=== PATIENT | male | born 1995 | race Caucasian/White ===

== ENCOUNTER 2016-12-18 17:49 | Emergency (ER) | payer OTHER ==
--- NOTE | 2016-12-18 19:43 | ED CLINICAL REPORT ---
Clinical Report - Physicians/Mid Levels [facility] [address] [place] [address] 12/18/2016 17:48 Patient: MARK BILLINGS Time Seen: 18:00; initial patient contact. Arrived- By ambulance. Historian- patient and EMS personnel. HISTORY OF PRESENT ILLNESS Chief Complaint: FALL. The injury occurred just prior to arrival. Occurred at work. Fell 4-5 feet while standing; slipped. The patient complains of moderate pain. No blow to the head, neck pain or loss of consciousness. REVIEW OF SYSTEMS The patient complains of pain on weight bearing. No numbness, dizziness, weakness or nausea. No abdominal pain or pain, laceration, vomiting or nausea. No vomiting, back pain, neck pain, laceration or alteration in mental status. No headache or head injury. The patient has had joint pain. All systems otherwise negative, except as recorded above. PAST HISTORY HLD Fatty liver. Surgeries: No history of previous surgery. Additional Surgeries: no known surgeries. Medications: Chantix. Crestor Oral. Allergies: No Known Drug Allergy. SOCIAL HISTORY Former smoker. Occasional alcohol use. No drug use. ADDITIONAL NOTES The nursing notes have been reviewed. PHYSICAL EXAM Vital Signs: 12/18/2016 18:13 BP: 142/71. HR: 90. RR: 16. O2 saturation: 98%. Pain level now: 7/10. Have been reviewed. Hypertensive. Heart rate normal. Respiratory rate normal. Temperature normal. Oxygen saturation normal. Appearance: Alert. Oriented X3. No acute distress. Eyes: Pupils equal, round and reactive to light. ENT: No dental injury. Neck: Painless ROM. Non-tender. CVS: Heart sounds normal. Pulses: left dorsalis pedis 2+ and left posterior tibial 2+. Respiratory: No respiratory distress. Breath sounds normal. Chest nontender. Abdomen: No visible injury. Back: No tenderness. ROM normal. Skin: Skin intact. Skin warm and dry. Extremities: Left ankle. (Obvious fracture dislocation. Foot is externally rotated at 90 deg.). Left foot. Neurovascular intact distally. Neuro: Oriented X 3. No motor deficit. No sensory deficit. LABS, X-RAYS, AND EKG Lt Wrist X-ray: Minimally displaced, angulated fracture of the distal radius. Views: AP, lateral and oblique. Technique: good. The X-rays were independently viewed by me and interpreted contemporaneously by me. Prior films were not available for comparison. Lt Tib/Fib X-ray: Oblique fracture of the mid left fibula. Views: AP and lateral. Technique: good. The X-rays were independently viewed by me and interpreted contemporaneously by me. Prior films were not available for comparison. Lt Ankle X-ray: Left ankle fracture. Severely displaced fracture of the distal tibia. Views: 3 view ankle series. Technique: good. The X-rays were independently viewed by me and interpreted contemporaneously by me. Prior films were not available for comparison. Laboratory Tests: CBC w Diff: (VERNON: 12/18/2016 17:55) ( [facility] 12/18/2016 18:11) Final results Test Result Flag Units (Reference) WHITE BLOOD COUNT 8.9 K/uL (4.5-11.5) RED BLOOD COUNT 5.00 M/uL (4.50-5.90) HEMOGLOBIN 14.9 gm/dL (13.5-17.5) HEMATOCRIT 43.5 % (41.0-53.0) MEAN CELL VOLUME 87 fL (80-100) MEAN CORPUSCULAR HGB 30 pg (26-34) MEAN CORPUSCULAR HGB CONC 34 g/dL (31-37) RED CELL DISTRIBUTION WIDTH 12.5 % (11.6-14.8) PLATELET COUNT 231 K/uL (150-400) NEUTROPHIL % 64.3 % (50-75) LYMPH % 24.1 L % (25-40) MONO % 7.8 % (3-14) EOSINOPHIL % 3.5 % (0-4) BASOPHIL % 0.3 % (0-2) CMP: (VERNON: 12/18/2016 17:55) ( [facility] 12/18/2016 18:21) Final results Test Result Flag Units (Reference) GLUCOSE 74 mg/dL (70-110) BUN 16 mg/dL (7-18) CREATININE 1.0 mg/dL (0.6-1.3) Estimated GFR >60 mL/min Estimated GFR- >60 mL/min Note: Persistent reduction over 3 months in eGFR<60 mL/min/1.73 m2 defines CKD. Patients with eGFR values>=60 mL/min/1.73 m2 may also have CKD if evidence ofpersistent proteinuria. Additional information may be foundat www.kidney.org. SODIUM 143 mmol/L (136-145) POTASSIUM 3.8 mmol/L (3.5-5.1) CHLORIDE 104 mmol/L (98-107) CARBON DIOXIDE 26 mmol/L (21-32) CALCIUM 9.4 mg/dL (8.5-10.1) TOTAL PROTEIN 8.3 H g/dL (6.4-8.2) ALBUMIN 4.3 g/dL (3.3-5.0) BILIRUBIN, TOTAL 0.5 mg/dL (0.0-1.0) ALKALINE PHOSPHATASE 78 U/L (46-116) AST (SGOT) 47 H U/L (15-37) ALT (SGPT) 96 H U/L (12-78) . PROGRESS AND PROCEDURES Critical care performed (60 minutes). Time includes: direct patient care, patient reassessment, coordination of patient care, interpretation of data (laboratory data and pulse oximetry), review of patient's medical records, medical consultation, family consultation regarding treatment decisions and documentation of patient care. The patient required critical care due to a high probability of imminent deterioration. Multiple urgent interventions were required to prevent sudden deterioration (Musculoskeletal/neurological). Discussed case with on-call health care provider, (call returned 185 Dr. Etienne. Thje ankle injury is beyond his level of expertise.). Discussed case with health care provider (call returned [address] Dr. Valarie MATTHEW at [facility]. Accepted the pt.). Disposition: Benefits, risks and alternatives to transfer explained to patient and family. Transferred to [facility]. Condition: good. CLINICAL IMPRESSION Closed displaced and moderately angulated oblique fracture of the shaft of the left fibula. Closed displaced transverse and Colle's fracture of the distal left radius. Closed displaced left distal tibia pilon fracture (fracture dislocation). (Electronically signed by Thang Kerns Dr. 12/18/2016 21:37)
--- NOTE | 2016-12-18 19:43 | ED ORDER SUMMARY ---
..... Patient: MARK BILLINGS OrderSheet [facility] VisitID: [id number] [place] [address] 21y, M Registration Date/Time: 12/18/2016 ORDER SHEET Weight: 92.5 kg (measured) Allergies: No Known Drug Allergy GENERAL ORDERS: Wrist 3 or 4V Left Urgent (18:00 12/18/2016 Aleksandr Valverde) (Ack 18:04 PWeiler ER Tech1) (18:18 Dahlia R.N.) Tibia/Fibula Left Urgent (18:00 12/18/2016 Aleksandr Valverde) (Ack 18:04 Tete ER Tech1) (18:18 Dahlia R.N.) Ankle 3 or 4V Left Urgent (18:00 12/18/2016 Aleksandr Valverde) (Ack 18:04 MIRAeiaris ER Tech1) (18:18 Dahlia R.N.) CBC w Diff Urgent (18:00 12/18/2016 Aleksandr Valverde) (Ack 18:04 MIRAeiler ER Tech1) (18:18 Dahlia R.N.) CMP Urgent (18:00 12/18/2016 Aleksandr Valverde) (Ack 18:04 PWeiler ER Tech1) (18:18 Dahlia R.N.) NPO (18:12 12/18/2016 Aleksandr Valverde) (18:18 Dahlia R.N.) MEDICATION ORDERS: IV FLUIDS: IV Saline Lock (18:00 12/18/2016 Aleksandr Valverde) (18:09 Luiz R.N.) Dilaudid IV 0.5 mg (HIGH ALERT MEDICATION, NOW) (18:09 12/18/2016 Aleksandr Valverde) (18:19 Dahlia R.N.) Dilaudid IV 0.5 mg (HIGH ALERT MEDICATION, NOW) (18:36 12/18/2016 Dahlia Quintero.NParmjit verbal order read back to Aleksandr Valverde) (18:37 Dahlia Quintero.N.) Dilaudid IV 0.5 mg (HIGH ALERT MEDICATION, NOW) (19:32 12/18/2016 Aleksandr Valverde) (19:37 Adarsh Benjamin) ORDER SHEET NOTES: [Electronically signed by Thang Kerns Dr. (21:37 12/18/2016)] [Electronically signed by Yuli Vanegas R.N. (22:10 12/18/2016)] [Electronically locked/signed by Yuli Vanegas R.N. (22:12/18/2016)]
--- NOTE | 2016-12-18 19:43 | ED CLINICAL REPORT ---
Clinical Report - Physicians/Mid Levels [facility] [address] [place] [address] 12/18/2016 17:48 Patient: MARK BILLINGS Time Seen: 18:00; initial patient contact. Arrived- By ambulance. Historian- patient and EMS personnel. HISTORY OF PRESENT ILLNESS Chief Complaint: FALL. The injury occurred just prior to arrival. Occurred at work. Fell 4-5 feet while standing; slipped. The patient complains of moderate pain. No blow to the head, neck pain or loss of consciousness. REVIEW OF SYSTEMS The patient complains of pain on weight bearing. No numbness, dizziness, weakness or nausea. No abdominal pain or pain, laceration, vomiting or nausea. No vomiting, back pain, neck pain, laceration or alteration in mental status. No headache or head injury. The patient has had joint pain. All systems otherwise negative, except as recorded above. PAST HISTORY HLD Fatty liver. Surgeries: No history of previous surgery. Additional Surgeries: no known surgeries. Medications: Chantix. Crestor Oral. Allergies: No Known Drug Allergy. SOCIAL HISTORY Former smoker. Occasional alcohol use. No drug use. ADDITIONAL NOTES The nursing notes have been reviewed. PHYSICAL EXAM Vital Signs: 12/18/2016 18:13 BP: 142/71. HR: 90. RR: 16. O2 saturation: 98%. Pain level now: 7/10. Have been reviewed. Hypertensive. Heart rate normal. Respiratory rate normal. Temperature normal. Oxygen saturation normal. Appearance: Alert. Oriented X3. No acute distress. Eyes: Pupils equal, round and reactive to light. ENT: No dental injury. Neck: Painless ROM. Non-tender. CVS: Heart sounds normal. Pulses: left dorsalis pedis 2+ and left posterior tibial 2+. Respiratory: No respiratory distress. Breath sounds normal. Chest nontender. Abdomen: No visible injury. Back: No tenderness. ROM normal. Skin: Skin intact. Skin warm and dry. Extremities: Left ankle. (Obvious fracture dislocation. Foot is externally rotated at 90 deg.). Left foot. Neurovascular intact distally. Neuro: Oriented X 3. No motor deficit. No sensory deficit. LABS, X-RAYS, AND EKG Lt Wrist X-ray: Minimally displaced, angulated fracture of the distal radius. Views: AP, lateral and oblique. Technique: good. The X-rays were independently viewed by me and interpreted contemporaneously by me. Prior films were not available for comparison. Lt Tib/Fib X-ray: Oblique fracture of the mid left fibula. Views: AP and lateral. Technique: good. The X-rays were independently viewed by me and interpreted contemporaneously by me. Prior films were not available for comparison. Lt Ankle X-ray: Left ankle fracture. Severely displaced fracture of the distal tibia. Views: 3 view ankle series. Technique: good. The X-rays were independently viewed by me and interpreted contemporaneously by me. Prior films were not available for comparison. Laboratory Tests: CBC w Diff: (VERNON: 12/18/2016 17:55) ( [facility] 12/18/2016 18:11) Final results Test Result Flag Units (Reference) WHITE BLOOD COUNT 8.9 K/uL (4.5-11.5) RED BLOOD COUNT 5.00 M/uL (4.50-5.90) HEMOGLOBIN 14.9 gm/dL (13.5-17.5) HEMATOCRIT 43.5 % (41.0-53.0) MEAN CELL VOLUME 87 fL (80-100) MEAN CORPUSCULAR HGB 30 pg (26-34) MEAN CORPUSCULAR HGB CONC 34 g/dL (31-37) RED CELL DISTRIBUTION WIDTH 12.5 % (11.6-14.8) PLATELET COUNT 231 K/uL (150-400) NEUTROPHIL % 64.3 % (50-75) LYMPH % 24.1 L % (25-40) MONO % 7.8 % (3-14) EOSINOPHIL % 3.5 % (0-4) BASOPHIL % 0.3 % (0-2) CMP: (VERNON: 12/18/2016 17:55) ( [facility] 12/18/2016 18:21) Final results Test Result Flag Units (Reference) GLUCOSE 74 mg/dL (70-110) BUN 16 mg/dL (7-18) CREATININE 1.0 mg/dL (0.6-1.3) Estimated GFR >60 mL/min Estimated GFR- >60 mL/min Note: Persistent reduction over 3 months in eGFR<60 mL/min/1.73 m2 defines CKD. Patients with eGFR values>=60 mL/min/1.73 m2 may also have CKD if evidence ofpersistent proteinuria. Additional information may be foundat [email or web address].org. SODIUM 143 mmol/L (136-145) POTASSIUM 3.8 mmol/L (3.5-5.1) CHLORIDE 104 mmol/L (98-107) CARBON DIOXIDE 26 mmol/L (21-32) CALCIUM 9.4 mg/dL (8.5-10.1) TOTAL PROTEIN 8.3 H g/dL (6.4-8.2) ALBUMIN 4.3 g/dL (3.3-5.0) BILIRUBIN, TOTAL 0.5 mg/dL (0.0-1.0) ALKALINE PHOSPHATASE 78 U/L (46-116) AST (SGOT) 47 H U/L (15-37) ALT (SGPT) 96 H U/L (12-78) . PROGRESS AND PROCEDURES Critical care performed (60 minutes). Time includes: direct patient care, patient reassessment, coordination of patient care, interpretation of data (laboratory data and pulse oximetry), review of patient's medical records, medical consultation, family consultation regarding treatment decisions and documentation of patient care. The patient required critical care due to a high probability of imminent deterioration. Multiple urgent interventions were required to prevent sudden deterioration (Musculoskeletal/neurological). Discussed case with on-call health care provider, (call returned [address] Dr. Etienne. Thje ankle injury is beyond his level of expertise.). Discussed case with health care provider (call returned [address] Dr. Valarie MATTHEW at [facility]. Accepted the pt.). Disposition: Benefits, risks and alternatives to transfer explained to patient and family. Transferred to [facility]. Condition: good. CLINICAL IMPRESSION Closed displaced and moderately angulated oblique fracture of the shaft of the left fibula. Closed displaced transverse and Colle's fracture of the distal left radius. Closed displaced left distal tibia pilon fracture (fracture dislocation). (Electronically signed by Thang Kerns Dr. 12/18/2016 21:37)
--- NOTE | 2016-12-18 19:43 | ED ORDER SUMMARY ---
..... Patient: MARK BILLINGS OrderSheet [facility] VisitID: [id number] [place] [address] 21y, M Registration Date/Time: 12/18/2016 ORDER SHEET Weight: 92.5 kg (measured) Allergies: No Known Drug Allergy GENERAL ORDERS: Wrist 3 or 4V Left Urgent (18:00 12/18/2016 Aleksandr Valverde) (Ack 18:04 PWeiler ER Tech1) (18:18 Dahlia R.N.) Tibia/Fibula Left Urgent (18:00 12/18/2016 Aleksandr Valverde) (Ack 18:04 Tete ER Tech1) (18:18 Dahlia R.N.) Ankle 3 or 4V Left Urgent (18:00 12/18/2016 Aleksandr Valverde) (Ack 18:04 MIRAeiaris ER Tech1) (18:18 Dahlia R.N.) CBC w Diff Urgent (18:00 12/18/2016 Aleksandr Valverde) (Ack 18:04 MIRAeiler ER Tech1) (18:18 Dahlia R.N.) CMP Urgent (18:00 12/18/2016 Aleksandr Valverde) (Ack 18:04 PWeiler ER Tech1) (18:18 Dahlia R.N.) NPO (18:12 12/18/2016 Aleksandr Valverde) (18:18 Dahlia R.N.) MEDICATION ORDERS: IV FLUIDS: IV Saline Lock (18:00 12/18/2016 Aleksandr Valverde) (18:09 Luiz R.N.) Dilaudid IV 0.5 mg (HIGH ALERT MEDICATION, NOW) (18:09 12/18/2016 Aleksandr Valverde) (18:19 Dahlia R.N.) Dilaudid IV 0.5 mg (HIGH ALERT MEDICATION, NOW) (18:36 12/18/2016 Dahlia Quintero.NParmjit verbal order read back to Aleksandr Valverde) (18:37 Dahlia Quintero.N.) Dilaudid IV 0.5 mg (HIGH ALERT MEDICATION, NOW) (19:32 12/18/2016 Aleksandr Valverde) (19:37 Adarsh Benjamin) ORDER SHEET NOTES: [Electronically signed by Thang Kerns Dr. (21:37 12/18/2016)] [Electronically signed by Yuli Vanegas R.N. (22:10 12/18/2016)] [Electronically locked/signed by Yuli Vanegas R.N. (22:12/18/2016)]
--- NOTE | 2016-12-18 19:43 | ED NURSING NOTES ---
Clinical Report - Nurses [facility] [place] [address] 12/18/2016 17:48 Patient: MARK BILLINGS TRIAGE Weight: 92.5 kg measured. Height/Length: 71 inches Per Patient. BMI: 28.5. --17:55 Maria Guadalupe Alvares R.N. Medications Crestor Oral. --17:55 Maria Guadalupe Alvares R.N. Chantix. --17:55 Maria Guadalupe Alvares R.N. Allergies No Known Drug Allergy. --17:55 Maria Guadalupe Alvares R.N. PROBLEMS: Fatty liver. --17:56 Maria Guadalupe Alvares R.N. ADDITIONAL SURGERIES: no known surgeries. Major Trauma History Triage time 17:52. Arrived by EMS and via (Pt fell off the bed of pickup truck, left ankle dislocated, left wrist injury,pain). Historian: patient. Acuity: LEVEL 2. Mechanism of injury: FALL. Occurred approximately 15 minutes prior to arrival. Trauma activation: Modified Trauma Activation. PAST MEDICAL HX: Tetanus status: up-to-date. SOCIAL HX: Former smoker, end date 10/2016. Alcohol use; consumes beer and liquor. (twice a week). CARLENE COMA SCORE: [place] Coma Scale: 15- eyes open spontaneously (4); best verbal response- oriented x 4 (5); best motor response- obeys commands (6). --18:00 Maria Guadalupe Alvares R.N. 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 Attempted x1. Right antecubital space, 18g angiocath and saline lock placed; flushed with 5 mL saline. --18:00 Maria Guadalupe Alvares R.N. Treatment ALUMINA REFINERY OPERATOR: #1 IV access fluid - 1000 mL bag NS. #2 IV access. Attempted x1. Right forearm, 20g angiocath, saline lock placed; flushed with 5 mL saline. --18:00 Maria Guadalupe Alvares R.N. Primary Survey: Alert. Airway patent. Breathing spontaneous. Pulses present. Pulses: left radial 4+ and left dorsalis pedis 1+. Skin color within normal limits and warm and dry to touch. --18:00 Maria Guadalupe Alvares R.N. 17:52 12/18/16. BP: 143/69. RR: 20. Pain level now: 01/02. --18:00 Maria Guadalupe Alvares R.N. 18:24 12/18/16. Temp: 98.9 F (temporal). --18:24 Kacy Murphy R.N. PHYSICAL ASSESSMENT Secondary Survey: 18:12/18/16. Spinal precautions maintained. GENERAL / NEURO / PSYCH: Alert. Oriented X 4. --18:01 Maria Guadalupe Alvares R.N. NURSING PROGRESS NOTES 18:12/18/16. Reassurance given. Patient identifiers checked. Call light placed in reach. Bed placed in lowest position. Patient ready for evaluation- chart flagged. --18:01 Maria Guadalupe Alvares R.N. 18:04 12/18/2016 Site #1 started via IV in the right antecubital space with an 18g angiocath, with aseptic technique and good blood return; one attempt. Blood drawn: rainbow set. Labeled in the presence of the patient and sent to the lab. Saline lock flushed with 10 mL saline. --18:09 Ever Birminhgam R.N. 18:04 12/18/2016 Site #2 started via IV in the right forearm with an 20g angiocath, with aseptic technique and good blood return; one attempt. Saline lock flushed with 10 mL saline. --18:10 Ever Birmingham R.N. 18:13 12/18/16. BP: 142/71. HR: 90. RR: 16. O2 saturation: 98%. Pain level now: 02/01. --18:17 Kacy Murphy R.N. 18:17 12/18/16. Reassessment after fluids administered and medication administered. He is calm. Overall patient status is the same- he states feels the same. --18:17 Kacy Murphy R.N. 18:18 12/18/16. Portable x-ray performed and left forearm and left wrist and knee, left leg and left ankle x-ray performed. --18:18 Kacy Murphy R.N. 18:19 12/18/2016 Dilaudid (HYDROmorphone HCl PF) IVP 0.5 mg given over 1 minute(s) via site #1. Allergies verified, confirmed 5 rights and sedative warning given to the patient. IV patency established. IV site checked: no pain, redness, or swelling. IV flushed thoroughly pre- and post-medication administration. IVP given by RN. --18:19 Kacy Murphy R.N. 18:21 12/18/16. BP: 131/68. HR: 80. RR: 16. O2 saturation: 97%. --18:21 Kacy Murphy R.N. 18:31 12/18/16. BP: 141/79. HR: 79. RR: 18. O2 saturation: 100%. Pain level now: 03/04. --18:32 Kacy Murphy R.N. 18:32 12/18/16. Reassessment after procedure. He is calm and resting quietly. Overall patient status is the same- he states feels the same. --18:32 Kacy Murphy R.N. 18:37 12/18/2016 Dilaudid (HYDROmorphone HCl PF) IVP 0.5 mg given over 1 minute(s) via site #1. Allergies verified, confirmed 5 rights and sedative warning given to the patient. IV patency established. IV site checked: no pain, redness, or swelling. IV flushed thoroughly pre- and post-medication administration. IVP given by RN. --18:37 Kacy Murphy R.N. 18:48 12/18/16. Reassessment after fluids administered and medication administered. He is calm and resting quietly. Overall patient status is the same- he states feels the same. --18:48 Kacy Murphy R.N. 18:47 12/18/16. BP: 138/68. HR: 83. RR: 22. O2 saturation: 98%. Pain level now: 02/01. --18:48 Kacy Murphy R.N. Care transferred and report received (SHARLA Lerma). --19:03 Yuli Vanegas R.N. 19:05 12/18/16. BP: 147/91 (regular adult cuff) taken on the right arm. HR: 66. RR: 16. O2 saturation: 100% on room air. Pain level now: 04/04. Additional comments: left ankle. --19:07 Yuli Vanegas R.N. 19:07 12/18/16. The patient is calm and resting quietly. ( Rounded on patient, he is in pain in right ankle, patient offered comfort measures patient is doing fine he says, father sitting at bedside). --19:07 Yuli Vanegas R.N. 19:35 12/18/2016 Dilaudid (HYDROmorphone HCl PF) IVP 0.5 mg given over 1 minute(s) via site #1. Allergies verified, confirmed 5 rights and sedative warning given to the patient and patient's family. IV patency established. IV site checked: no pain, redness, or swelling. IV flushed thoroughly pre- and post-medication administration. IVP given by RN. --19:37 Yuli Vanegas R.N. 19:55 Splint applied by [facility] assisted by RN. --19:55 Brendan Baires R.N. DISPOSITION / DISCHARGE 19:44 12/18/16. BP: 141/73. HR: 73. RR: 19. O2 saturation: 99%. --19:45 Brendan Baires R.N. 19:53. Condition at departure: stable. No learning barriers present. Transferred to [facility]. Summary of care provided to transport team. Transported via ambulance by transport team. Report was given. (Report given by Dr.Millerto Bailey RN [facility]). Patient's personal items include: contacts, other belongings; items were placed in belongings bag. He did not have glasses, dentures or a hearing aid. --19:53 Brendan Baires R.N. Departure time: 20:07 Dec 18 2016. --20:08 Yuli Vanegas R.N. Locked/Released at 12/18/2016 22:10 by Yuli Vanegas R.N.
--- NOTE | 2016-12-18 22:04 | DIAGNOSTIC IMAGING REPORT ---
PROCEDURE: XR TIBIA AND FIBULA - LEFT INDICATION: TRAUMA/INJURY TECHNIQUE: Two views of the left tibia and fibula COMPARISON: None. FINDINGS: Normal mineralization. Moderate anterior/ventral angulation of the mildly comminuted, spiral mid diaphyseal fibular fracture. There is a posterior and lateral tibiotalar dislocation as well as transverse medial malleolar fracture with moderate lateral displacement of the fracture fragment. There is disruption of the distal tibiofibular relationship indicating the syndesmotic tear. Incidental note is made of a a well corticated a bipartite patella. No radiodense foreign bodies in the soft tissue. IMPRESSION: 1. Mid diaphyseal fibular fracture with moderate anterior/ventral angulation. 2. Posterolateral tibiotalar dislocation. 3. Displaced transverse medial malleolar fracture.
--- NOTE | 2016-12-18 22:06 | DIAGNOSTIC IMAGING REPORT ---
PROCEDURE: XR ANKLE 3 OR 4 VIEWS - LEFT INDICATION: TRAUMA/INJURY TECHNIQUE: Four views of the left ankle. COMPARISON: None. FINDINGS: Normal mineralization. Significant lateral tibiotalar dislocation and transverse, displaced medial malleolar fracture. There is significant disruption of the ankle mortise. A high fibular fracture is partially imaged, likely mid diaphyseal. The AP subluxation of the tibia talar joint is not well seen on the given views. No radiodense foreign bodies in the soft tissue. IMPRESSION: 1. Posterolateral tibiotalar dislocation. 2. Displaced transverse medial malleolar fracture. 3. High diaphyseal fibular fracture.
--- NOTE | 2016-12-18 22:10 | ED MED RECONCILIATION SUMMARY ---
Patient: MARK BILLINGS Medication Reconciliation Report [facility] VisitID: [id number] [address] [place] [address] 21y, M Registration Date/Time: 12/18/2016 Weight: 92.5 kg Height/Length: 71 in. BMI: 28.5 ALLERGIES: No Known Drug Allergy The patient's Home Medications are listed below: THE FOLLOWING MEDICATIONS NEED TO BE RECONCILED: Chantix Crestor Oral The source(s) of the original Home Medication information: Not obtained. The following Medications were given to the patient in the Emergency Department: Dilaudid [IVP] IVP 0.5 mg, administered: 12/18/2016 6:19:00 PM Dilaudid [IVP] IVP 0.5 mg, administered: 12/18/2016 6:37:00 PM Dilaudid [IVP] IVP 0.5 mg, administered: 12/18/2016 7:35:00 PM The following Medications were prescribed to the patient: None.
--- NOTE | 2016-12-18 22:10 | ED MAR SUMMARY ---
..... Medication Administration Record [facility] [address] [place] [address] Patient: MARK BILLINGS Visit ID: [id number] 21y, M Weight: 92.5 kg Height/Length: 71 in BMI: 28.5 ALLERGIES: No Known Drug Allergy Given 18:19 12/18/2016 Kacy Murphy R.N. Medication Administered: DILAUDID [IVP] (HYDROMORPHONE HCL PF), Dose: 0.5 mg IVP over 1 minute(s), Site: #1 right AC. Medication Ordered: Dilaudid IV 0.5 mg (HIGH ALERT MEDICATION, NOW). Given 18:37 12/18/2016 Kacy Murphy R.N. Medication Administered: DILAUDID [IVP] (HYDROMORPHONE HCL PF), Dose: 0.5 mg IVP over 1 minute(s), Site: #1 right AC. Medication Ordered: Dilaudid IV 0.5 mg (HIGH ALERT MEDICATION, NOW). Given 19:35 12/18/2016 Yuli Vanegas R.N. Medication Administered: DILAUDID [IVP] (HYDROMORPHONE HCL PF), Dose: 0.5 mg IVP over 1 minute(s), Site: #1 right AC. Medication Ordered: Dilaudid IV 0.5 mg (HIGH ALERT MEDICATION, NOW).
--- NOTE | 2016-12-18 22:10 | ED DISCHARGE INSTRUCTIONS ---
Patient: MARK BILLINGS General Instructions [facility] VisitID: [id number] [address] [place] [address] 21y, M Registration Date/Time: 12/18/2016 Closed displaced and moderately angulated oblique fracture of the shaft of the left fibula. Closed displaced transverse and Colle's fracture of the distal left radius. Closed displaced left distal tibia pilon fracture (fracture dislocation). (Electronically signed by Thang Kerns Dr. 12/18/2016 21:37)
--- NOTE | 2016-12-18 22:10 | ED MED RECONCILIATION SUMMARY ---
Patient: MARK BILLINGS Medication Reconciliation Report [facility] VisitID: [id number] [address] [place] [address] 21y, M Registration Date/Time: 12/18/2016 Weight: 92.5 kg Height/Length: 71 in. BMI: 28.5 ALLERGIES: No Known Drug Allergy The patient's Home Medications are listed below: THE FOLLOWING MEDICATIONS NEED TO BE RECONCILED: Chantix Crestor Oral The source(s) of the original Home Medication information: Not obtained. The following Medications were given to the patient in the Emergency Department: Dilaudid [IVP] IVP 0.5 mg, administered: 12/18/2016 6:19:00 PM Dilaudid [IVP] IVP 0.5 mg, administered: 12/18/2016 6:37:00 PM Dilaudid [IVP] IVP 0.5 mg, administered: 12/18/2016 7:35:00 PM The following Medications were prescribed to the patient: None.
--- NOTE | 2016-12-18 22:10 | ED MAR SUMMARY ---
..... Medication Administration Record [facility] [address] [facility] [address] Patient: MARK BILLINGS Visit ID: [id number] 21y, M Weight: 92.5 kg Height/Length: 71 in BMI: 28.5 ALLERGIES: No Known Drug Allergy Given 18:19 12/18/2016 Kacy Murphy R.N. Medication Administered: DILAUDID [IVP] (HYDROMORPHONE HCL PF), Dose: 0.5 mg IVP over 1 minute(s), Site: #1 right AC. Medication Ordered: Dilaudid IV 0.5 mg (HIGH ALERT MEDICATION, NOW). Given 18:37 12/18/2016 Kacy Murphy R.N. Medication Administered: DILAUDID [IVP] (HYDROMORPHONE HCL PF), Dose: 0.5 mg IVP over 1 minute(s), Site: #1 right AC. Medication Ordered: Dilaudid IV 0.5 mg (HIGH ALERT MEDICATION, NOW). Given 19:35 12/18/2016 Yuli Vanegas R.N. Medication Administered: DILAUDID [IVP] (HYDROMORPHONE HCL PF), Dose: 0.5 mg IVP over 1 minute(s), Site: #1 right AC. Medication Ordered: Dilaudid IV 0.5 mg (HIGH ALERT MEDICATION, NOW).
--- NOTE | 2016-12-18 22:10 | ED DISCHARGE INSTRUCTIONS ---
Patient: MARK BILLINGS General Instructions [facility] VisitID: [id number] [address] [place] [address] 21y, M Registration Date/Time: 12/18/2016 Closed displaced and moderately angulated oblique fracture of the shaft of the left fibula. Closed displaced transverse and Colle's fracture of the distal left radius. Closed displaced left distal tibia pilon fracture (fracture dislocation). (Electronically signed by Thang Kerns Dr. 12/18/2016 21:37)
--- NOTE | 2016-12-18 22:11 | DIAGNOSTIC IMAGING REPORT ---
PROCEDURE: XR WRIST MIN 3 VIEWS - LEFT INDICATION: TRAUMA/INJURY TECHNIQUE: Four views of the left wrist. COMPARISON: None. FINDINGS: Normal mineralization. Transverse, minimally comminuted, impacted fracture across the distal radial epiphysis with questionable intra-articular extension. Impaction, and slight comminution is more extensive across the dorsal aspect of the distal radius causing tilt of the radiocarpal alignment without dislocation. The scapholunate interval remains intact. Distal radial ulnar joint appears grossly intact. There is a small avulsion fracture of the ulnar styloid. Mild soft tissue swelling. No radiodense foreign bodies. IMPRESSION: 1. Impaction fracture of the distal radial apophysis without dislocation. 2. Tiny ulnar styloid avulsion fracture.
== END 2016-12-18 20:07 | disposition short-term general hospital (02) ==
LOC: ED SRH 17:49
DX: S82.432A Displaced oblique fracture of shaft of left fibula, initial encounter for closed fracture (principal); S52.532A Colles' fracture of left radius, initial encounter for closed fracture; S82.872A Displaced pilon fracture of left tibia, initial encounter for closed fracture; S93.05XA Dislocation of left ankle joint, initial encounter; W17.89XA Other fall from one level to another, initial encounter; Y93.89 Activity, other specified; Y92.89 Other specified places as the place of occurrence of the external cause; Y99.0 Civilian activity done for income or pay; Z79.899 Other long term (current) drug therapy; Z87.891 Personal history of nicotine dependence